=== PATIENT | female | born 1960 | race Caucasian/White ===

== ENCOUNTER 2019-03-10 11:54 | Inpatient (IN) | payer OTHER ==
[2019-03-10 14:33] VITALS: BMI 23.2
--- NOTE | 2019-03-10 17:17 | HP ---
CIWA Score Nausea/Vomitin Muscle Tremors: 2 Anxiety: 2 Agitation: 1-Slight > Activity Paroxysmal Sweats: 2 Orientation: 0-Oriented Tacttile Disturbances: 1-Very Mild Itch/Numbness Auditory Disturbances: 0-None Visual Disturbances: 0-None Headache: 3-Moderate CIWA-Ar Total Score: 13 - Admission Criteria OASAS Guidelines: Admission for Medically Managed Detox: Requires at least one of the followin. CIWA greater than 12 2. Seizures within the past 24 hours 3. Delirium tremens within the past 24 hours 4. Hallucinations within the past 24 hours 5. Acute intervention needed for co occurring medical disorder 6. Acute intervention needed for co occurring psychiatric disorder 7. Severe withdrawal that cannot be handled at a lower level of care (continued vomiting, continued diarrhea, abnormal vital signs) requiring intravenous medication and/or fluids 8. Patient presents the following: CIWA greater than 12 Admission Criteria Met: Admission criteria met Admission ROS [facility] Chief Complaint: Natacha Nieto is presenting for alcohol, cocaine, and heroin detox. Allergies/Adverse Reactions: Allergies Allergy/AdvReac Type Severity Reaction Status Date / Time morphine Allergy Severe Swelling Verified 03/10/19 14:19 History of Present Illness: Natacha Nieto is presenting for alcohol, cocaine, and heroin detox. Alcohol: 1-2 pints per day. Most recent drink was this morning. Starting drinking at age 20. Started drinking heavy on/off after age 27. Denies seizures. Has had blackout. Has had falls, denies head hits. Most recent fall was several days ago. Longest period sobriety: 5 years. Stopped drinking, was through [facility]. Started drinking after 4 months out of the program, depression. Cocaine: 150$ dollars worth. Most recent use was yesterday. Heroin: 4-5 bags per day, at max used a bundle per day. Most recent use was yesterday. Use intranasaly. Denies IVDU. Denies overdose. Has a Narcan kit at home and denies every using it. Usually has one dealer but occasionally goes to another. Is currently on methadone program, [facility], current dose 50mg. Marijuana: one bag per day, most recent use was yesterday. Previously used a drug "horse tranquilizer" that caused large wounds on the bilateral lower extremities. 6 years ago. Has been to detox before, most recently 3 years ago. Has been to rehab. Plans on outpatient rehab after detox. Wants to go [facility]. 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 Banda Allergies: morphine Exam Limitations: No Limitations - Ebola screening Have you traveled outside of the country in the last 21 days: No Have you had contact with anyone from an Ebola affected area: No - Review of Systems Constitutional: Chills, Loss of Appetite, Changes in sleep EENT: reports: No Symptoms Reported Respiratory: reports: Cough, Wheezing Cardiac: reports: No Symptoms Reported GI: reports: Diarrhea, Difficulty Swallowing, Nausea : reports: No Symptoms Reported Musculoskeletal: reports: Back Pain, Muscle Pain Integumentary: reports: Lesions (bilateral LE wounds s/p debridement), Pruritus , Rash Neuro: reports: Headache Endocrine: reports: No Symptoms Reported Hematology: reports: No Symptoms Reported Psychiatric: reports: Orientated x3, Agitated, Anxious Patient History - Patient Medical History Hx Anemia: Yes Hx Asthma: Yes Hx Chronic Obstructive Pulmonary Disease (COPD): No Hx Cancer: No Hx Cardiac Disorders: No Hx Congestive Heart Failure: No Hx Hypertension: Yes Hx Hypercholesterolemia: No Hx Pacemaker: No HX Cerebrovascular Accident: No Hx Seizures: No Hx Dementia: No Hx Diabetes: No Hx Gastrointestinal Disorders: No Hx Liver Disease: No Hx Genitourinary Disorders: No Hx Sexually Transmitted Disorders: No Hx Renal Disease (ESRD): No Hx Thyroid Disease: Yes (hypothyroid) Hx Human Immunodeficiency Virus (HIV): No Hx Hepatitis C: No Hx Depression: Yes Hx Suicide Attempt: No Hx Bipolar Disorder: Yes Hx Schizophrenia: No - Patient Surgical History Hx Neurologic Surgery: No Hx Cataract Extraction: No Hx Cardiac Surgery: No Hx Lung Surgery: No Hx Breast Surgery: No Hx Breast Biopsy: No Hx Abdominal Surgery: No Hx Appendectomy: No Hx Cholecystectomy: No Hx Genitourinary Surgery: No Hx Section: Yes (x4) Hx Orthopedic Surgery: Yes (debridement of wounds) Hx Hysterectomy: No - Reproductive History Patient is a Female of Child Bearing Age (11 -55 yrs old): No Last Menstrual Period: 02/14/16 LMP comment: 3 years ago Patient : No - Smoking Cessation Smoking history: Current every day smoker Have you smoked in the past 12 months: Yes Aproximately how many cigarettes per day: 10 Hx Chewing Tobacco Use: No Initiated information on smoking cessation: Yes 'Breaking Loose' booklet given: 03/10/19 - Substance & Tx. History Hx Alcohol Use: Yes Hx Substance Use: Yes Substance Use Type: Alcohol, Cocaine, Heroin, Marijuana, Opiates - Substances abused Alcohol Substance route: Oral Frequency: Daily Amount used: 1 pint of vodka Age of first use: 17 Date of last use: 03/10/19 Cocaine Substance route: Smoking Frequency: Daily Amount used: $100-150 Age of first use: 25 Date of last use: 03/09/19 Heroin Substance route: Inhalation Frequency: Daily Amount used: 4-5 bags per day Date of last use: 03/10/19 Marijuana/Hashish Substance route: Smoking Frequency: Daily Amount used: one bag per day Date of last use: 03/09/19 Admission Physical Exam S - Vital Signs Vital Signs: Vital Signs - 24 hr 03/10/19 14:27 Temperature 97.5 F L Pulse Rate 59 L Respiratory 18 Rate Blood Pressure 117/76 - Physical General Appearance: Yes: Disheveled, Moderate Distress, Thin HEENTM: Yes: EOMI, Hearing grossly Normal, Normocephalic, Normal Voice, DANYELLE, Pharynx Normal Respiratory: Yes: Chest Non-Tender, No Respiratory Distress, No Accessory Muscle Use, Wheezing Neck: Yes: No masses,lesions,Nodules, Trachea in good position Breast: Yes: Breast Exam Deferred Cardiology: Yes: Regular Rhythm, Regular Rate, S1, S2 Abdominal: Yes: Normal Bowel Sounds, Non Tender, Flat, Soft Genitourinary: Yes: Within Normal Limits Back: Yes: Normal Inspection Musculoskeletal: Yes: full range of Motion Extremities: Yes: Normal Range of Motion, Swelling, Other (bilateral wounds to lower extremities, s/p debridement) Neurological: Yes: layout designer II-XII NML intact, Fully Oriented, Alert, Motor Strength 5/5, Normal Mood/Affect, Normal Response Integumentary: Yes: Dry, Hives (on R upper arm), Other (bilateral wounds to lower extremities, s/p debridement) - Diagnostic (1) Methadone maintenance therapy patient Current Visit: Yes Status: Acute (2) Heroin abuse Current Visit: Yes Status: Acute (3) Alcohol abuse Current Visit: Yes Status: Acute (4) Cocaine abuse Current Visit: Yes Status: Acute (5) Cannabis abuse Current Visit: Yes Status: Acute (6) Hypertension Current Visit: Yes Status: Acute (7) Hypothyroid Current Visit: Yes Status: Acute (8) GERD (gastroesophageal reflux disease) Current Visit: Yes Status: Acute (9) Asthma Current Visit: Yes Status: Acute (10) Bipolar disorder Current Visit: Yes Status: Acute (11) Depression Current Visit: Yes Status: Acute Cleared for Admission S - Detox or Rehab S Level of Care: Medically Managed Detox Regimen/Protocol: Librium Breathalyzer - Breathalyzer Breathalyzer: 0 Urine Drug Screen - Test Device Lot number: [id number] Expiration date: 11/12/20 - Control Is test valid?: Yes - Results Drug screen NEGATIVE: No Urine drug screen results: THC-Marijuana, SAVANAH-Cocaine, FEN-Fentanyl, MOP-Opiates , OXY-Oxycodone, MTD-Methadone Inpatient Rehab Admission - Rehab Decision to Admit Inpatient rehab admission?: No
[2019-03-10] MEDS ORDERED: ACETAMINOPHEN 325 MG TABLET (FP) PO PRN (17:52)
[2019-03-10] MEDS ORDERED: MELATONIN 5 MG TABLETS PO PRN (17:52)
[2019-03-10] MEDS ORDERED: MAGNESIUM CITRATE 300 ML BOTTLE PO PRN (17:52)
[2019-03-10] MEDS ORDERED: MAGNESIUM HYDROX 2400MG/30ML ORAL SUSPENSION 30 ML CUP PO PRN (17:52)
[2019-03-10] MEDS ORDERED: BISMUTH SUBSALICYLATE 524 MG/30 ML UD PO PRN (17:52)
[2019-03-10] MEDS ORDERED: chlordiazePOXIDE HCL 10 MG CAPSULE PO PRN (17:52)
[2019-03-10] MEDS ORDERED: MENTHOL/PHENOL 1 EACH UD MM PRN (17:52)
[2019-03-10] MEDS ORDERED: ALBUTEROL SO4 8 GM HFA INHALER IH PRN (18:05)
--- NOTE | 2019-03-10 18:24 | PN ---
Teaching Attending Note Name of Resident: Matt Duval ATTENDING PHYSICIAN STATEMENT I saw and evaluated the patient. I reviewed the resident's note and discussed the case with the resident. I agree with the resident's findings and plan as documented. SUBJECTIVE: 58 y.o. female pt here for alcohol, cocaine, and heroin detox. Alcohol: 1-2 pints per day, most recently this morning, first age of use 20, heavily since age 27, had falls most recently several days ago denies injuries , longest sobriety 5 years while at [employer] , relapse 4 mo after d/c . prior detox 3 years ago Cocaine: 150$ dollars /day , latest use yesterday Heroin: 4-5 bags per day, max a bundle per day, latest use yesterday via inhalation , denies IVDU, denies overdose. Has a Narcan kit at home and denies ever using it. @ [facility] x several years @ [facility], current dose 50mg daily latest today . Marijuana: 1x/ day, most recently used yesterday. claims used ketamine while in [place] which resulted in large rash on legs and abdomen that started as round bullae which ruptured and created large wounds on hadley legs 6 years ago , with wound care/ surgical debridement and planned plastic surgery at some point in the future . Utox: THC, SAVANAH, FEN, MOP, OXY, MTD PMHx hypothyroid, asthma, HTN, anemia, GERD, varicose veins Psychiatric: bipolar, depression, insomnia. PSHX : as above , + endoscopy, L ankle fx repair s/p slip and fall on sidewalk Social: lives with daughter, , and grandchildren, Tobacco : 1/2 ppd x 30 years Allergies: morphine OBJECTIVE: wnwd , mild distress , current symptoms as above ext : large areas of descuamation and superficial wound excoriations on hadley calves, with hyperpigmentation on hadley feet and ankles/ stasis dermatitis , left ankle surgical scar. Vital Signs - 24 hr 03/10/19 14:27 Temperature 97.5 F L Pulse Rate 59 L Respiratory 18 Rate Blood Pressure 117/76 ASSESSMENT AND PLAN: Opioid dependence on agonist therapy Alcohol dependence - Librium protocol smoking cessation counselling .
[2019-03-10] MEDS: chlordiazePOXIDE HCL 25 MG CAPSULE PO SCH (22:31)
[2019-03-10] MEDS: THIAMINE HCL 100 MG TABLET (FP) PO SCH (22:31)
[2019-03-10] MEDS: METHOCARBAMOL 500 MG TABLET PO PRN (22:33)
[2019-03-10] MEDS: BUDESONIDE/FORMETEROL FUMARATE 80/4.5 mcg INHALER IH SCH (22:34)
[2019-03-11] MEDS ORDERED: METHADONE HCL 10 MG TABLET ONE (05:31)
[2019-03-11] MEDS ORDERED: METHADONE HCL 40 MG DISPERSABLE TABLET ONE (05:31)
[2019-03-11] MEDS ORDERED: METHADONE HCL 10 MG TABLET PO SCH (06:00)
[2019-03-11] MEDS: chlordiazePOXIDE HCL 25 MG CAPSULE PO SCH ×3 (07:28→21:24)
[2019-03-11] MEDS: METHADONE 40 MG, METHADONE 10 MG PO SCH (07:28)
[2019-03-11] MEDS: METHOCARBAMOL 500 MG TABLET PO PRN ×2 (07:32→16:54)
[2019-03-11] MEDS ORDERED: FERROUS SO4 325 MG TABLET (FP) PO SCH (08:00)
[2019-03-11 09:39] LABS: HEMATOCRIT 31.7 % (32.4-45.2); HEMOGLOBIN 9.6 GM/dL (10.7-15.3); MCHC 30.3 g/dl (32.0-36.0); MEAN CELL VOLUME 69.1 fl (80-96); MEAN PLT VOLUME 8.5 fl (7.5-11.1); PLATELET COUNT 282 K/MM3 (134-434); RBC 4.58 M/mm3 (3.60-5.2); RDW 21.6 % (11.6-15.6); WHITE BLOOD COUNT 4.4 K/mm3 (4.0-10.0)
[2019-03-11 09:42] LABS: ALBUMIN 2.6 g/dl (3.4-5.0); BILIRUBIN,TOTAL 0.8 mg/dL (0.2-1); BLOOD UREA NITROGEN 10.9 mg/dL (7-18); CALCIUM 8.5 mg/dL (8.5-10.1); CREATININE 0.7 mg/dL (0.55-1.3); POTASSIUM 4.4 mmol/L (3.5-5.1); TOT PROT 6.6 g/dl (6.4-8.2)
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
[2019-03-11] MEDS ORDERED: ALBUTEROL SO4 2.5/IPRATROPIUM 0.5 INH SOL 3 ML VIAL.NEB. NEB ONE (10:16)
[2019-03-11] MEDS ORDERED: ALBUTEROL SO4 8 GM HFA INHALER IH PRN (10:16)
[2019-03-11] MEDS ORDERED: ALBUTEROL SO4 2.5/IPRATROPIUM 0.5 INH SOL 3 ML VIAL.NEB. NEB PRN (10:16)
[2019-03-11] MEDS ORDERED: SUMAtriptan SUCCINATE 25 MG TABLET PO ONE (10:17)
[2019-03-11] MEDS: ENALAPRIL MALEATE 10 MG TABLET (FP) PO SCH (10:22)
[2019-03-11] MEDS: PRENATAL VITAMINS W/ FOLIC ACID TABLET (FP) PO SCH (10:22)
[2019-03-11] MEDS: amLODIPine BESYLATE 5 MG TABLET (FP) PO SCH (10:22)
[2019-03-11] MEDS: PANTOPRAZOLE 20 MG TABLET (FP) PO SCH (10:22)
[2019-03-11] MEDS: IBUPROFEN 400 MG TABLET (FP) PO PRN ×2 (10:23→16:54)
[2019-03-11] MEDS: BUDESONIDE/FORMETEROL FUMARATE 80/4.5 mcg INHALER IH SCH ×2 (10:23→21:24)
[2019-03-11] MEDS: hydrOXYzine PAMOATE 25 MG CAPSULE (FP) PO PRN (10:24)
[2019-03-11] MEDS: GABAPENTIN 300 MG CAPSULE (FP) PO SCH (10:53)
[2019-03-11] MEDS: NICOTINE 21 MG/24 HOURS TOPICAL PATCH TD SCH (10:53)
[2019-03-11] MEDS: FUROSEMIDE 20 MG TABLET (FP) PO SCH (10:53)
--- NOTE | 2019-03-11 12:10 | PN ---
S CIWA - CIWA Score Nausea/Vomitin-No Nausea/No Vomiting Muscle Tremors: 3 Anxiety: 3 Agitation: 3 Paroxysmal Sweats: 3 Orientation: 0-Oriented Tacttile Disturbances: 0-None Auditory Disturbances: 0-None Visual Disturbances: 0-None Headache: 0-None Present CIWA-Ar Total Score: 12 S Progress Note (SOAP) Subjective: wheezing sweats shakes migraines tired interrupted sleep Objective: 03/11/19 12:09 Vital Signs Temperature 98.2 F 03/11/19 09:36 Pulse Rate 68 03/11/19 11:23 Respiratory Rate 18 03/11/19 09:36 Blood Pressure 89/58 L 03/11/19 09:36 O2 Sat by Pulse Oximetry (%) 99 03/11/19 11:23 Laboratory Tests 03/11/19 03/11/19 03/11/19 07:30 07:30 07:30 WBC 4.4 RBC 4.58 Hgb 9.6 L Hct 31.7 L MCV 69.1 L MCH 21.0 L MCHC 30.3 L RDW 21.6 H Plt Count 282 MPV 8.5 Sodium 139 Potassium 4.4 Chloride 107 Carbon Dioxide 29 Anion Gap 4 L BUN 10.9 Creatinine 0.7 Est GFR (CKD-EPI)AfAm 112.26 Est GFR (CKD-EPI)NonAf 96.86 Random Glucose 103 Calcium 8.5 Total Bilirubin 0.8 AST 7 L ALT 10 L Alkaline Phosphatase 56 Total Protein 6.6 Albumin 2.6 L RPR Titer Nonreactive aaox3 ambulating no acute distress Assessment: 03/11/19 12:10 withdrawal sx Plan: continue detox increase fluids imitrex 25mg x once
[2019-03-11] MEDS: FERROUS SO4 325 MG TABLET (FP) PO SCH (16:54)
[2019-03-11] MEDS: THIAMINE HCL 100 MG TABLET (FP) PO SCH (21:24)
[2019-03-11] MEDS: MELATONIN 5 MG TABLETS PO PRN (21:25)
[2019-03-12] MEDS: IBUPROFEN 400 MG TABLET (FP) PO PRN (00:58)
[2019-03-12] MEDS ORDERED: METHADONE HCL 10 MG TABLET ONE (04:34)
[2019-03-12] MEDS ORDERED: METHADONE HCL 40 MG DISPERSABLE TABLET ONE (04:34)
[2019-03-12] MEDS: chlordiazePOXIDE 5 MG CAPSULE PO SCH ×3 (06:08→21:49)
[2019-03-12] MEDS: METHADONE 40 MG, METHADONE 10 MG PO SCH (06:09)
[2019-03-12] MEDS: METHOCARBAMOL 500 MG TABLET PO PRN ×2 (06:15→17:32)
[2019-03-12] MEDS: ACETAMINOPHEN 325 MG TABLET (FP) PO PRN (06:15)
[2019-03-12] MEDS: FERROUS SO4 325 MG TABLET (FP) PO SCH ×3 (07:59→17:29)
[2019-03-12] MEDS: MAG HYDROX/AL HYDROX/SIMETH 30 ML UNIT-DOSE CUP PO PRN (07:59)
[2019-03-12] MEDS: ENALAPRIL MALEATE 10 MG TABLET (FP) PO SCH (10:22)
[2019-03-12] MEDS: PANTOPRAZOLE 20 MG TABLET (FP) PO SCH (10:22)
[2019-03-12] MEDS: FUROSEMIDE 20 MG TABLET (FP) PO SCH (10:22)
[2019-03-12] MEDS: PRENATAL VITAMINS W/ FOLIC ACID TABLET (FP) PO SCH (10:22)
[2019-03-12] MEDS: amLODIPine BESYLATE 5 MG TABLET (FP) PO SCH (10:22)
[2019-03-12] MEDS: GABAPENTIN 300 MG CAPSULE (FP) PO SCH (10:22)
[2019-03-12] MEDS: NICOTINE 21 MG/24 HOURS TOPICAL PATCH TD SCH (10:22)
[2019-03-12] MEDS: BUDESONIDE/FORMETEROL FUMARATE 80/4.5 mcg INHALER IH SCH ×2 (10:23→21:50)
--- NOTE | 2019-03-12 13:52 | PN ---
S CIWA - CIWA Score Nausea/Vomitin-No Nausea/No Vomiting Muscle Tremors: 2 Anxiety: 3 Agitation: 0-Normal Activity Paroxysmal Sweats: 3 Orientation: 0-Oriented Tacttile Disturbances: 0-None Auditory Disturbances: 0-None Visual Disturbances: 0-None Headache: 2-Mild CIWA-Ar Total Score: 10 S Progress Note (SOAP) Subjective: c/o headache, sweats, anxiety, and mild shakes. Objective: 03/12/19 13:51 Vital Signs 03/12/19 03/12/19 07:28 09:51 Temperature 97.7 F 96.6 F L Pulse Rate 49 L 55 L Respiratory 18 18 Rate Blood Pressure 118/69 115/74 Lab Results WBC 4.4 K/mm3 (4.0-10.0) 03/11/19 07:30 RBC 4.58 M/mm3 (3.60-5.2) 03/11/19 07:30 Hgb 9.6 GM/dL (10.7-15.3) L 03/11/19 07:30 Hct 31.7 % (32.4-45.2) L 03/11/19 07:30 MCV 69.1 fl (80-96) L 03/11/19 07:30 MCHC 30.3 g/dl (32.0-36.0) L 03/11/19 07:30 RDW 21.6 % (11.6-15.6) H 03/11/19 07:30 Plt Count 282 K/MM3 (134-434) 03/11/19 07:30 Sodium 139 mmol/L (136-145) 03/11/19 07:30 Potassium 4.4 mmol/L (3.5-5.1) 03/11/19 07:30 Chloride 107 mmol/L (98-107) 03/11/19 07:30 Carbon Dioxide 29 mmol/L (21-32) 03/11/19 07:30 Anion Gap 4 MMOL/L (8-16) L 03/11/19 07:30 BUN 10.9 mg/dL (7-18) 03/11/19 07:30 Creatinine 0.7 mg/dL (0.55-1.3) 03/11/19 07:30 Random Glucose 103 mg/dL (74-106) 03/11/19 07:30 Calcium 8.5 mg/dL (8.5-10.1) 03/11/19 07:30 Labs noted. Assessment: 03/12/19 13:51 Pt is alert and oriented x3 and in no acute respiratory distress. Full ROM, ambulating in the unit. Withdrawal symptoms. Plan: continue detox.
[2019-03-12] MEDS: MELATONIN 5 MG TABLETS PO PRN (21:49)
[2019-03-12] MEDS: THIAMINE HCL 100 MG TABLET (FP) PO SCH (21:49)
[2019-03-13] MEDS ORDERED: chlordiazePOXIDE HCL 10 MG CAPSULE PO PRN
[2019-03-13] MEDS: METHOCARBAMOL 500 MG TABLET PO PRN ×3 (02:12→21:47)
[2019-03-13] MEDS: IBUPROFEN 400 MG TABLET (FP) PO PRN ×2 (02:12→18:21)
[2019-03-13] MEDS ORDERED: METHADONE HCL 10 MG TABLET ONE (03:21)
[2019-03-13] MEDS ORDERED: METHADONE HCL 40 MG DISPERSABLE TABLET ONE (03:21)
[2019-03-13] MEDS: METHADONE 40 MG, METHADONE 10 MG PO SCH (05:46)
[2019-03-13] MEDS: chlordiazePOXIDE HCL 10 MG CAPSULE PO SCH ×3 (05:46→21:47)
[2019-03-13] MEDS: ACETAMINOPHEN 325 MG TABLET (FP) PO PRN (05:48)
[2019-03-13] MEDS: MAG HYDROX/AL HYDROX/SIMETH 30 ML UNIT-DOSE CUP PO PRN (05:50)
[2019-03-13] MEDS: FERROUS SO4 325 MG TABLET (FP) PO SCH ×3 (07:04→16:36)
[2019-03-13] MEDS: NICOTINE 21 MG/24 HOURS TOPICAL PATCH TD SCH (10:46)
[2019-03-13] MEDS: PANTOPRAZOLE 20 MG TABLET (FP) PO SCH (10:46)
[2019-03-13] MEDS: GABAPENTIN 300 MG CAPSULE (FP) PO SCH (10:46)
[2019-03-13] MEDS: BUDESONIDE/FORMETEROL FUMARATE 80/4.5 mcg INHALER IH SCH ×2 (10:46→21:47)
[2019-03-13] MEDS: PRENATAL VITAMINS W/ FOLIC ACID TABLET (FP) PO SCH (10:46)
[2019-03-13] MEDS: ENALAPRIL MALEATE 10 MG TABLET (FP) PO SCH (10:46)
[2019-03-13] MEDS: FUROSEMIDE 20 MG TABLET (FP) PO SCH (10:46)
[2019-03-13] MEDS: amLODIPine BESYLATE 5 MG TABLET (FP) PO SCH (10:46)
[2019-03-13] MEDS: hydrOXYzine PAMOATE 25 MG CAPSULE (FP) PO PRN (13:39)
--- NOTE | 2019-03-13 18:26 | PN ---
S CIWA - CIWA Score Nausea/Vomitin-No Nausea/No Vomiting Muscle Tremors: None Anxiety: 4-Mod. Anxious/Guarded Agitation: 3 Paroxysmal Sweats: No Perspiration Orientation: 0-Oriented Tacttile Disturbances: 0-None Auditory Disturbances: 0-None Visual Disturbances: 0-None Headache: 0-None Present CIWA-Ar Total Score: 7 BHS Progress Note (SOAP) Subjective: Agitated Objective: 03/13/19 18:25 Last Vital Signs Temp Pulse Resp BP Pulse Ox 98.2 F 66 16 106/61 99 03/13/19 17:24 03/13/19 17:24 03/13/19 17:24 03/13/19 17:24 03/11/19 11:23 Laboratory Tests 03/11/19 03/11/19 03/11/19 07:30 07:30 07:30 WBC 4.4 RBC 4.58 Hgb 9.6 L Hct 31.7 L MCV 69.1 L MCH 21.0 L MCHC 30.3 L RDW 21.6 H Plt Count 282 MPV 8.5 Sodium 139 Potassium 4.4 Chloride 107 Carbon Dioxide 29 Anion Gap 4 L BUN 10.9 Creatinine 0.7 Est GFR (CKD-EPI)AfAm 112.26 Est GFR (CKD-EPI)NonAf 96.86 Random Glucose 103 Calcium 8.5 Total Bilirubin 0.8 AST 7 L ALT 10 L Alkaline Phosphatase 56 Total Protein 6.6 Albumin 2.6 L RPR Titer Nonreactive Labs reviewed Assessment: 03/13/19 18:25 Withdrawal sxs Plan: Continue detox Encouraged PO water intake
[2019-03-13] MEDS: THIAMINE HCL 100 MG TABLET (FP) PO SCH (21:48)
[2019-03-14] MEDS ORDERED: METHADONE HCL 40 MG DISPERSABLE TABLET ONE (04:40)
[2019-03-14] MEDS ORDERED: METHADONE HCL 10 MG TABLET ONE (04:40)
[2019-03-14] MEDS ORDERED: chlordiazePOXIDE HCL 10 MG CAPSULE PO ONE (05:00)
[2019-03-14] MEDS: ACETAMINOPHEN 325 MG TABLET (FP) PO PRN (05:19)
[2019-03-14] MEDS: METHADONE 40 MG, METHADONE 10 MG PO SCH (05:21)
[2019-03-14] MEDS: FERROUS SO4 325 MG TABLET (FP) PO SCH (07:55)
--- NOTE | 2019-03-14 09:07 | DS ---
[facility] Detox Discharge Summary Admission Date: 03/10/19 Discharge Date: 03/14/19 - History Present History: Alcohol Dependence, Cannabis Dependence, MMTP - Physical Exam Results Vital Signs: Vital Signs Temperature 97.7 F 03/14/19 08:26 Pulse Rate 70 03/14/19 08:26 Respiratory Rate 18 03/14/19 08:26 Blood Pressure 116/66 03/14/19 08:26 O2 Sat by Pulse Oximetry (%) 99 03/11/19 11:23 Pertinent Admission Physical Exam Findings: pt arrived in withdrawals Laboratory Tests 03/11/19 03/11/19 03/11/19 07:30 07:30 07:30 WBC 4.4 RBC 4.58 Hgb 9.6 L Hct 31.7 L MCV 69.1 L MCH 21.0 L MCHC 30.3 L RDW 21.6 H Plt Count 282 MPV 8.5 Sodium 139 Potassium 4.4 Chloride 107 Carbon Dioxide 29 Anion Gap 4 L BUN 10.9 Creatinine 0.7 Est GFR (CKD-EPI)AfAm 112.26 Est GFR (CKD-EPI)NonAf 96.86 Random Glucose 103 Calcium 8.5 Total Bilirubin 0.8 AST 7 L ALT 10 L Alkaline Phosphatase 56 Total Protein 6.6 Albumin 2.6 L RPR Titer Nonreactive pt today is aaox3 ambulating no acute distress no s/s of withdrawals - Treatment Hospital Course: Detox Protocol Followed, Detoxed Safely, Responded well, Discharged Condition Good, Rehab Referral Accepted Patient has Accepted a Rehab Referral to: pt referred to [facility] otp - Medication Discharge Medications: Ambulatory Orders Albuterol Sulfate Inhaler - [Ventolin Hfa Inhaler -] 1 - 2 inh PO Q4H PRN Amlodipine Besylate 5 mg PO DAILY 03/10/19 Budesonide/Formeterol Fumarate [SYMBICORT 80/4.5mcg -] 2 puff IH BID 03/10/19 Doxepin HCl 50 mg PO DAILY 03/10/19 Enalapril Maleate [Vasotec -] 10 mg PO DAILY 03/10/19 Ferrous Sulfate 325 mg PO BID 03/10/19 Furosemide [Lasix] 20 mg PO DAILY 03/10/19 Gabapentin 300 mg PO DAILY 03/10/19 Meloxicam 15 mg PO DAILY 03/10/19 Pantoprazole Sodium [Protonix -] 20 mg PO DAILY 03/10/19 - Diagnosis (1) Bipolar disorder Current Visit: Yes Status: Acute (2) Cannabis dependence Current Visit: Yes Status: Chronic (3) Depression Current Visit: Yes Status: Acute (4) Hypertension Current Visit: Yes Status: Chronic Qualifiers: Hypertension type: unspecified Qualified Code(s): I10 - Essential (primary ) hypertension (5) Methadone maintenance therapy patient Current Visit: Yes Status: Chronic (6) Substance induced mood disorder Current Visit: Yes Status: Acute (7) Substance-induced sleep disorder Current Visit: Yes Status: Acute (8) Uncomplicated alcohol dependence Current Visit: Yes Status: Chronic (9) Anemia Current Visit: Yes Status: Chronic Qualifiers: Anemia type: iron deficiency Iron deficiency anemia type: unspecified iron deficiency Qualified Code(s): D50.9 - Iron deficiency anemia, unspecified (10) Asthma Current Visit: Yes Status: Chronic Qualifiers: Asthma persistence: unspecified Asthma complication type: unspecified (11) Bipolar II disorder Current Visit: Yes Status: Chronic (12) GERD (gastroesophageal reflux disease) Current Visit: Yes Status: Chronic Qualifiers: Esophagitis presence: without esophagitis Qualified Code(s): K21.9 - Gastro -esophageal reflux disease without esophagitis (13) Hypothyroid Current Visit: Yes Status: Chronic (14) Nicotine dependence Current Visit: Yes Status: Chronic Qualifiers: Nicotine product type: cigarettes Substance use status: uncomplicated Qualified Code(s): F17.210 - Nicotine dependence, cigarettes, uncomplicated (15) Opioid dependence on agonist therapy Current Visit: Yes Status: Chronic (16) Varicose vein of leg Current Visit: No Status: Chronic Qualifiers: Varicose vein complication: unspecified (17) MDD (major depressive disorder) Current Visit: Yes Status: Ruled-out - AMA Did Patient Leave Against Medical Advice: No
[2019-03-14 09:20] VITALS: BP 103/50; PULSE 62; TEMP 96
[2019-03-14] MEDS: PRENATAL VITAMINS W/ FOLIC ACID TABLET (FP) PO SCH (10:48)
[2019-03-14] MEDS: GABAPENTIN 300 MG CAPSULE (FP) PO SCH (10:48)
[2019-03-14] MEDS: ENALAPRIL MALEATE 10 MG TABLET (FP) PO SCH (10:48)
[2019-03-14] MEDS: NICOTINE 21 MG/24 HOURS TOPICAL PATCH TD SCH (10:50)
[2019-03-14] MEDS: FUROSEMIDE 20 MG TABLET (FP) PO SCH (10:50)
[2019-03-14] MEDS: PANTOPRAZOLE 20 MG TABLET (FP) PO SCH (10:50)
[2019-03-14] MEDS: amLODIPine BESYLATE 5 MG TABLET (FP) PO SCH (10:50)
[2019-03-14] MEDS: BUDESONIDE/FORMETEROL FUMARATE 80/4.5 mcg INHALER IH SCH (10:50)
== END 2019-03-14 12:32 | disposition home or self-care (01) | DRG 773 ==
LOC: YASAS 11:54 → Y6N 18:40
PROVIDERS: ADMIT Surgery; ATTEND Surgery
PROC: HZ2ZZZZ Detoxification Services for Substance Abuse Treatment (ICD-10-PCS; principal; 2019-03-10)
DX: F10.230 Alcohol dependence with withdrawal, uncomplicated (principal); F11.20 Opioid dependence, uncomplicated; F14.20 Cocaine dependence, uncomplicated; F12.20 Cannabis dependence, uncomplicated; F17.210 Nicotine dependence, cigarettes, uncomplicated; F31.81 Bipolar II disorder; F19.24 Other psychoactive substance dependence with psychoactive substance-induced mood disorder; F19.282 Other psychoactive substance dependence with psychoactive substance-induced sleep disorder; I10 Essential (primary) hypertension; D50.9 Iron deficiency anemia, unspecified; J45.909 Unspecified asthma, uncomplicated; K21.9 Gastro-esophageal reflux disease without esophagitis; E03.9 Hypothyroidism, unspecified; I83.90 Asymptomatic varicose veins of unspecified lower extremity; Z88.6 Allergy status to analgesic agent
CPT/HCPCS: 36415; 80053; 85027; 86593; 94640